=== PATIENT | female | born 1935 | race African-American/Black ===

== ENCOUNTER 2018-06-29 18:40 | Inpatient (IN) | payer OTHER ==
[~2018-06-29] VITALS: Ht 157.5 cm; Wt 75.9 kg
[2018-06-29] MEDS ORDERED: LABETALOL 5MG/ML SYR 20 MG/4 ML SYRINGE IV ONE (19:30)
[2018-06-29 19:49] LABS: BASOPHILS % 1.1 % (0.0-2.0); HEMATOCRIT. 44.1 % (36.0-48.0); HEMOGLOBIN. 14.5 g/dL (12.0-16.0); LYMPHOCYTES % 20.7 % (20.0-50.0); MEAN CORPUSCULAR HEMOGLOBIN 28.2 pg (28.0-32.0); MEAN CORPUSCULAR VOLUME 85.9 fL (81.0-99.0); MEAN PLATELET VOLUME 8.2 fl (7.4-10.4); MONOCYTES % 7.9 % (2.0-8.0); NEUTROPHILS % 70.3 % (40.0-76.0); PLATELET 268 x1000/uL (130-400); RED BLOOD CELL COUNT 5.13 mill/uL (4.2-5.4); RED CELL DISTRIBUTION WIDTH 13.5 % (11.6-14.6)
[2018-06-29 19:54] LABS: CHLORIDE 106 mEq/L (98-107)
[2018-06-29 19:58] LABS: ETHANOL BLOOD < 10 mg/dL
[2018-06-29 19:59] LABS: PROTHROMBIN TIME 10.5 sec (9.1-11.1)
[2018-06-29] MEDS ORDERED: LABETALOL HCL 20MG/4ML CARPUJECT IV ONE (20:00)
[2018-06-29 20:01] LABS: LDL CHOLESTEROL 191 mg/dL (5-100)
[2018-06-29 21:19] LABS: CLARITY URINE CLOUDY (CLEAR); COLOR URINE YELLOW (YELLOW); KETONES URINE 2+ (NEGATIVE); LEUKOCYTE ESTERASE URINE 1+ (NEGATIVE); NITRITE URINE NEGATIVE (NEGATIVE); OCCULT BLOOD URINE 1+ (NEGATIVE); PROTEIN URINE 2+ (NEGATIVE); SPECIFIC GRAVITY URINE 1.018 (1.005-1.030)
[2018-06-29 21:32] LABS: *AMPHETAMINES SCREEN URINE NEGATIVE (NEGATIVE); *BARBITURATES SCREEN URINE NEGATIVE (NEGATIVE); *BENZODIAZEPINES SCREEN URINE NEGATIVE (NEGATIVE); *COCAINE SCREEN URINE NEGATIVE (NEGATIVE); METHADONE URINE SCREEN NEGATIVE (NEGATIVE)
[2018-06-29 21:33] LABS: CANNABINOID URINE SCREEN NEGATIVE (NEGATIVE); OPIATES URINE SCREEN NEGATIVE (NEGATIVE); PHENCYCLIDINE URINE SCREEN NEGATIVE (NEGATIVE)
[2018-06-29 21:53] VITALS: BP 198/98
[2018-06-29 22:00] VITALS: BP 198/98
[2018-06-29 23:00] VITALS: BP 206/120
[2018-06-29] MEDS ORDERED: DEXT 5%/0.45% NACL 1000ML 1,000 ML IV SCH (23:28)
[2018-06-29] MEDS ORDERED: ACETAMINOPHEN 650MG/20.3ML UDC NG PRN (23:30)
[2018-06-29] MEDS ORDERED: DIPHENHYDRAMINE 50MG/ML VIAL IV PRN (23:30)
[2018-06-29] MEDS ORDERED: LEVOFLOXACIN 500MG PREMIX 100 ML IV SCH (23:30)
[2018-06-30] VITALS (17 sets, daily range): BP systolic 119–202; BP diastolic 68–133
[2018-06-30] MEDS ORDERED: MAGNESIUM/ALUMINUM HYDROXIDE/SIMETHICONE 30ML UDC PO PRN (00:15)
[2018-06-30] MEDS ORDERED: ACETAMINOPHEN 325MG TABLET PO PRN (00:15)
[2018-06-30] MEDS ORDERED: ONDANSETRON HCL 4MG/2ML INJ IV PRN (00:15)
[2018-06-30] MEDS ORDERED: CLOPIDOGREL 75MG TABLET PO NR ×2 (01:30→09:00)
[2018-06-30] MEDS ORDERED: ASPIRIN 81MG EC TABLET PO SCH (01:30)
[2018-06-30] MEDS: CLONIDINE 0.1MG TABLET PO PRN ×2 (02:45→21:20)
[2018-06-30] MEDS ORDERED: IOHEXOL-350 100 ML BOTTLE ONE ×2 (02:57→08:50)
[2018-06-30] MEDS: SODIUM CHLORIDE 0.9% INJ 3ML FLUSH IVF SCH ×3 (06:00→21:59)
[2018-06-30 06:53] LABS: BASOPHILS % 0.8 % (0.0-2.0); EOSINOPHILS % 0.6 % (0.0-5.0); HEMATOCRIT. 38.9 % (36.0-48.0); HEMOGLOBIN. 12.7 g/dL (12.0-16.0); LYMPHOCYTES % 26.3 % (20.0-50.0); MEAN CORPUSCULAR VOLUME 85.5 fL (81.0-99.0); MEAN PLATELET VOLUME 7.5 fl (7.4-10.4); MONOCYTES % 11.4 % (2.0-8.0); NEUTROPHILS % 60.9 % (40.0-76.0); PLATELET 249 x1000/uL (130-400); RED BLOOD CELL COUNT 4.56 mill/uL (4.2-5.4); RED CELL DISTRIBUTION WIDTH 13.5 % (11.6-14.6)
[2018-06-30 07:05] LABS: CHLORIDE 106 mEq/L (98-107)
[2018-06-30 07:19] LABS: PHOSPHORUS 3.3 mg/dL (2.5-4.9)
[2018-06-30] MEDS ORDERED: LIDOCAINE HCL 1% 20ML VIAL (Pyxis) INJ ONE (08:22)
[2018-06-30] MEDS: AMLODIPINE 2.5MG TABLET PO SCH (09:00)
[2018-06-30] MEDS ORDERED: VALACYCLOVIR HCL 500MG TABLET NG SCH (09:00)
[2018-06-30] MEDS: ASPIRIN 81MG EC TABLET PO SCH (10:03)
[2018-06-30] MEDS: ENOXAPARIN 40MG/0.4ML SYR SUBCUT SCH (10:03)
[2018-06-30] MEDS ORDERED: ATORVASTATIN CALCIUM 40MG TABLET PO SCH (21:00)
[2018-07-01] VITALS (13 sets, daily range): BP systolic 103–154; BP diastolic 58–102
[2018-07-01] MEDS: SODIUM CHLORIDE 0.9% INJ 3ML FLUSH IVF SCH ×2 (06:04→14:00)
[2018-07-01] MEDS: AMLODIPINE 2.5MG TABLET PO SCH (08:22)
[2018-07-01] MEDS: ASPIRIN 81MG EC TABLET PO SCH (08:22)
[2018-07-01] MEDS: ENOXAPARIN 40MG/0.4ML SYR SUBCUT SCH (08:23)
[2018-07-01] MEDS ORDERED: CLOPIDOGREL 75MG TABLET PO SCH (09:00)
[2018-07-01 16:45] LABS: HEMATOCRIT 37.5 % (36.0-48.0); HEMOGLOBIN 12.3 g/dL (12.0-16.0); MEAN CORPUSCULAR HEMOGLOBIN 28.1 pg (28.0-32.0); MEAN CORPUSCULAR VOLUME 85.6 fL (81.0-99.0); PLATELET 215 x1000/uL (130-400); RED BLOOD CELL COUNT 4.38 mill/uL (4.2-5.4); RED CELL DISTRIBUTION WIDTH 13.3 % (11.6-14.6)
== END 2018-07-01 18:27 | disposition home or self-care (01) | DRG 65 ==
LOC: ER 18:40 → 3WST 20:24 → EDBEDREQTM 20:26 → EDBEDREQ 20:26 → ENRESERV 21:00
PROVIDERS: ADMIT Internal Medicine; ATTEND Internal Medicine
PROC: 02HV33Z Insertion of Infusion Device into Superior Vena Cava, Percutaneous Approach (ICD-10-PCS; principal; 2018-06-30)
PROC: B548ZZA Ultrasonography of Superior Vena Cava, Guidance (ICD-10-PCS; 2018-06-30)
PROC: B5181ZA Fluoroscopy of Superior Vena Cava using Low Osmolar Contrast, Guidance (ICD-10-PCS; 2018-06-30)
DX: I63.9 Cerebral infarction, unspecified (principal); D68.59 Other primary thrombophilia; G81.94 Hemiplegia, unspecified affecting left nondominant side; N39.0 Urinary tract infection, site not specified; W18.39XA Other fall on same level, initial encounter; E78.5 Hyperlipidemia, unspecified; E86.0 Dehydration; I10 Essential (primary) hypertension; Z82.49 Family history of ischemic heart disease and other diseases of the circulatory system; Z85.3 Personal history of malignant neoplasm of breast; Z86.73 Personal history of transient ischemic attack (TIA), and cerebral infarction without residual deficits; Z90.11 Acquired absence of right breast and nipple; Y93.89 Activity, other specified; Y92.89 Other specified places as the place of occurrence of the external cause; Y99.8 Other external cause status
CPT/HCPCS: 36415; 36569; 70496; 70498; 70553; 71045; 76937; 77001; 80048; 80061; 80305; 82962; 83036; 83721; 84100; 84443; 84484; 85027; 92523; 93005; 93306; 93880; 96374; 97161; 99291; C1725; J1650; J3490; Q9967